=== PATIENT | female | born 1965 | race Hispanic/Latino ===

== ENCOUNTER → 2018-02-17 | Outpatient (REF) | payer MEDICARE, MEDICAID ==
[~2018-02-17] MED LIST: ACYCLOVIR400 MG OR; ALPRAZOLAM0.5 MG OR; ALPRAZOLAM0.5 MG PO; ARIXTR1 SC; ATIVAN0.5 MG OR; ATRIPLA OR; AVELOX400 MG OR; AZITHROMYCIN500 MG OR; BACTRIM DS1 TAB OR; CARDIZEM CD240 MG PO; CIPRO500 MG PO; COUMADIN10 MG OR; COUMADIN5 M1 IV; COUMADIN5 MG OR; COUMADIN7.5 MG PO; DAPSONE100 MG OR; DILAUDID2 MG OR; DILTIAZEM120 M1 OR; DILTIAZEM120 M3 OR; DOXYCYCL HYC100 M3 OR; DOXYCYCL HYC100 MG OR; ETHAMBUTOL400 MG OR; FERROUS SULF OR; ISENTRESS; ISENTRESS PO; ISENTRESS400 MG PO; KEFLEX500 MG OR; LANOXIN0.125 MG OR; LANOXIN0.25 MG OR; LORTAB 5 OR; LORTAB 7.5 OR; LORTAB5 PO; MACROBID100 MG PO; MACRODANTIN100 MG PO; MEDDOSEPAK OR; MEPRON OR; MULTIVITAM10 PO; NAPROSYN500 MG OR; PREDNISONE5 MG OR; PYRAZINAMIDE500 MG OR; RIFADIN300 MG OR; TRUVADA PO; ULTRAM50 M1 OR; VENTOLIN HFA IN; VIT C/ACEROL500 MG OR; VITAMIN D2000 UNI1 PO; WARFARIN7.5 MG OR; WARFARIN7.5 MG PO; ZITHROMAX250 MG OR; ZOVIRAX400 MG PO; ZPAK OR
[2018-02-17 07:51] LABS: HEMATOCRIT 42.5 % (37.0-47.0); HEMOGLOBIN 13.9 g/dl (12.0-16.0); IMMATURE GRANULOCYTES 0.2 % (0.0-5.0); MEAN CELL VOLUME 95.1 fL CALC (80.0-100.0); MEAN CORPUSCULAR HGB 31.1 pG CALC (26.0-32.0); MEAN CORPUSCULAR HGB CONC 32.7 g/L CALC (32.0-36.0); NEUT# 2.52 thou/uL (2.00-7.15); RED BLOOD COUNT 4.47 mill/uL (4.20-5.60); RED CELL DISTRI WIDTH 13.2 % (11.5-15.5)
[2018-02-17 08:15] LABS: ALKALINE PHOSPHATASE 90 u/l (38-126); ANION GAP 10 (6-22 (CALC)); BILIRUBIN, TOTAL 0.5 mg/dL (0.0-1.4); BUN 16 mg/dL (7-17); BUN/CREATININE RATIO 23 (12-20 (CALC)); CARBON DIOXIDE 27 mmol/l (22-30); CHLORIDE 109 mmol/l (95-108); CREATININE 0.7 mg/dL (0.5-1.0); GFR > 60 ML/MIN (>=60 (CALC)); GFR FOR AFR.AMER. > 60 ML/MIN (>=60 (CALC)); POTASSIUM 4.1 mmol/l (3.5-5.1); SGOT/AST 31 u/l (14-36); SODIUM 141 mmol/l (137-146); TOTAL PROTEIN 7.5 g/dL (6.3-8.2)
== END | disposition home or self-care (01) ==
LOC: LAB 06:39
PROVIDERS: ATTEND Internal Medicine Infectious Disease
DX: B20 Human immunodeficiency virus [HIV] disease (principal)

== ENCOUNTER → 2018-06-24 | Outpatient (REF) | payer MEDICARE, MEDICAID ==
[2018-06-24 08:35] LABS: HEMATOCRIT 40.6 % (37.0-47.0); HEMOGLOBIN 13.1 g/dl (12.0-16.0); IMMATURE GRANULOCYTES 0.2 % (0.0-5.0); MEAN CELL VOLUME 95.1 fL CALC (80.0-100.0); MEAN CORPUSCULAR HGB 30.7 pG CALC (26.0-32.0); MEAN CORPUSCULAR HGB CONC 32.3 g/L CALC (32.0-36.0); NEUT# 2.69 thou/uL (2.00-7.15); RED BLOOD COUNT 4.27 mill/uL (4.20-5.60); RED CELL DISTRI WIDTH 12.9 % (11.5-15.5)
[2018-06-24 09:03] LABS: ALBUMIN 4.1 g/dL (3.2-5.0); ALKALINE PHOSPHATASE 104 u/l (38-126); ANION GAP 13 (6-22 (CALC)); BILIRUBIN, TOTAL 0.5 mg/dL (0.0-1.4); BUN 15 mg/dL (7-17); BUN/CREATININE RATIO 21 (12-20 (CALC)); CARBON DIOXIDE 27 mmol/l (22-30); CHLORIDE 104 mmol/l (95-108); CREATININE 0.7 mg/dL (0.5-1.0); GFR > 60 ML/MIN (>=60 (CALC)); GFR FOR AFR.AMER. > 60 ML/MIN (>=60 (CALC)); POTASSIUM 3.9 mmol/l (3.5-5.1); SGOT/AST 30 u/l (14-36); SODIUM 141 mmol/l (137-146); TOTAL PROTEIN 7.3 g/dL (6.3-8.2)
== END | disposition home or self-care (01) ==
LOC: LAB 07:21
PROVIDERS: ATTEND Internal Medicine Infectious Disease
DX: B20 Human immunodeficiency virus [HIV] disease (principal)